=== PATIENT | male | born 1975 | race Caucasian/White ===

== ENCOUNTER 2017-03-07 11:14 | Emergency (ER) | payer BC ==
[~2017-03-07] VITALS: Ht 190.5 cm; Wt 113.4 kg
--- OUTSIDE RECORDS SUMMARY | 2017-03-07 11:17 | External Medical Summary Rpt | CCD ---
Author Author [employer] Organization [employer] Address Unknown Phone Unavailable Purpose Continuity of Care Document - through 2016
--- OUTSIDE RECORDS SUMMARY | 2017-03-07 11:17 | External Medical Summary Rpt | CCD ---
Author Author [employer] Address Unknown Phone Purpose Continuity of Care Document - through 2016
--- OUTSIDE RECORDS SUMMARY | 2017-03-07 11:18 | External Medical Summary Rpt | CCD ---
Author Author , [employer]OLF BANSAL Address Unknown Phone [email or web address] Immunization Name Date Rout CVX Reac Dose Comm Prov Is Faci e tion ent ider Refu lity Give sed n Hep 12-0 43 999 Hist H135 No H135 B, 2-20 oric adul 09 al t Info rmat ion - Sour ce Unsp ecif ied Hep 09-2 43 999 Hist H135 No H135 B, 8-20 oric adul 09 al t Info rmat ion - Sour ce Unsp ecif ied Hep 07-2 43 999 Hist H135 No H135 B, 8-20 oric adul 09 al t Info rmat ion - Sour ce Unsp ecif ied
--- OUTSIDE RECORDS SUMMARY | 2017-03-07 11:18 | External Medical Summary Rpt | CCD ---
Author Author , ROLF BANSAL Address Unknown Phone [email or web address] Immunization Name Date Rout CVX Reac Dose [...]
--- OUTSIDE RECORDS SUMMARY | 2017-03-07 11:18 | External Medical Summary Rpt ---
Author Author [employer]OL[employer] Junior, [employer] Organization [employer] Address Unknown Phone Unavailable
[2017-03-07] MEDS ORDERED: BUPROPION HCL300 MG PO (11:27)
--- NOTE | 2017-03-07 11:32 | Urgent Treatment Center Report ---
History of Present Issue Date/Time Seen by Provider 03/07/17 1129 Visit Reason Pt arrived:Stretcher Presenting Problem:PT C/O RIGHT RIB PAIN WITH COUGHING, SNEEZING, AND MOVEMENT. Location if Accident: Onset of symptoms date/time:/ or onset unknown for:MEDICAL HX UNKNOWN Have you (or family members/close friends) recently traveled outside the [place]? N If Yes, where/when: Have you had exposure to infectious disease within the past month? TB? Other? Specify: Source patient, RN notes reviewed Exam Limitations no limitations Comment 41-year-old male presents with complaint of RIGHT rib pain. Patient states over the last 3 weeks he's had a cough and sneezing. Patient states he was driving yesterday and sneeze at that time felt something pop with burning sensation since then RIGHT rib has been tender. ALLERGIES Coded Allergies: Penicillins (Mild, 03/07/17) cephalexin (From KEFLEX) (Mild, 03/07/17) Home Medications Reported Medications BUPROPION HCL (Bupropion XL) 300 MG PO QDAY #30 History Medical History General CAD? No Angina: No MD: No Hypertension? No Hyperlipidemia? No CHF? No DVT? No PE? No COPD? No Asthma? No Anemia? No GERD? No Gastric ulcers? No GI Bleed? No Hernia? No Thyroid Problems? No Hypothyroidism? No CVA? No Seizures? No Diabetes? No Renal Insuffiency? No UTI? No Stones? No BPH? No GB Disease: No Nephritic Syndrome? No Asplenia? No Hepatitis? No Sickle Cell Disease? No Arthritis? No Migraines? No Cataracts? No Glaucoma? No MRSA? No HIV? No TB? No Anxiety? No Depression? No Cancer? No More? No Immunization HX DT/Tetanus Unknown Surgical Hx Previous Surgery?Y RIGHT KNEE Social History Smoking Hx Smoker: Current Every Day Smoker Tobacco: Yes Type Cigarettes Packs/day N/A Alcohol Alcohol: No Review of Systems All Other Systems Reviewed and Negative Respiratory see HPI, cough Musculoskeletal see HPI, muscle pain Physical Exam Vital Signs Vital Signs Date Time Temp Pulse Resp B/P Pulse O2 O2 Flow FiO2 Ox Delivery Rate 03/07 1123 97.7 85 20 145/81 96 - WBC >12,000 or <4,000 or 10% bands? 2 or more SIRS Criteria Met? B/P:145/81 MAP:102 Creatinine >2.0? UA output<0.5ml/kg/hr for 2 hrs? Platelet count >100,000? Lactate >2.0mmol/1? INR >1.2 or PTT > than 60 sec? Evidence of Organ Dysfunction? Provider documented clinical suspician of infection? Sepsis Criteria Count: 1 Sepsis Risk: General Appearance normal appearance, no apparent distress Eye Exam - bilateral eye normal exam, bilateral eye PERRL, bilateral eye EOMI Ear, Nose, Throat hearing grossly normal, normal ENT inspection, normal pharynx Neck normal inspection, full range of motion Respiratory Status Yes: trachea midline, chest symmetrical, non tender chest. No: respiratory distress. Lung Sounds bilateral: normal breath sounds, lungs clear. Cardiovascular normal exam, regular rate/rhythm, no peripheral edema Neurologic alert, normal exam, oriented x 3 Medical Decision Making LABS/Meds/Orders Pt receiving controlled substance in ED? No Results/Orders Orders Procedure Date/time Status RIBS-BILATERAL 03/07 1123 Active XRAY/CT/US XRAY/CT/US XRAY chest, rib XR interpretation by reviewed by me (dr victoria) Xray Results D[facility]a has questionable fracture of 7 rib Departure Departure Time of Disposition 1157 Disposition DC Home or Self Care(routine) Clinical Impression Primary Impression: Rib pain on right side Secondary Impressions: Fracture, rib Qualifiers: Encounter type: initial encounter Rib fracture type: single rib Fracture type: closed Laterality: right Qualified Code: S22.31XA - Fracture of one rib, right side, initial encounter for closed fracture Muscle strain of chest wall Qualifiers: Encounter type: initial encounter Qualified Code: S29.011A - Strain of muscle and tendon of front wall of thorax, initial encounter Condition STABLE Referrals Ramiro Vera MD (Family): 2 Days-Call Office Patient Instructions Muscle Strain Additional Instructions follow up with pcp this week tylenol/motrin for pain heat,ice for comfort Return or be seen in the ER if symptoms worsen or do not improve Discharge Counseling Counseled pt/family regarding diagnosis, test results, medications/RX, home care, follow up needs at 1212
[2017-03-07 12:13] VITALS: BP 145/81
--- NOTE | 2017-03-07 12:47 | RADIOLOGY REPORT PS360 ---
RIBS-BILATERAL HISTORY: Anterior rib pain, cough PAIN ORDERING PHYSICIAN: Abi Anguiano PATIENT AGE: 41 years COMPARISON: None FINDINGS: A frontal view of the chest shows no acute finding. Multiple views of the right and left ribs were obtained. No fracture or dislocation. No lytic or blastic change. IMPRESSION: Negative RIBS. If pain persists, consider follow-up exam in 7-[address] with 3-D reformats.
== END 2017-03-07 12:16 | disposition home or self-care (01) ==
LOC: UTC 11:14
DX: S22.31XA Fracture of one rib, right side, initial encounter for closed fracture (principal); S29.011A Strain of muscle and tendon of front wall of thorax, initial encounter; F17.210 Nicotine dependence, cigarettes, uncomplicated